=== PATIENT | male | born 1990 | race African-American/Black ===

== ENCOUNTER 2018-03-21 06:07 | Day surgery (SDC) | payer OTHER ==
[2018-03-20 12:29] VITALS: BMI 28.2
--- NOTE | 2018-03-20 14:47 | HP ---
HISTORY OF PRESENT ILLNESS: The patient is a 27-year-old male who injured his left knee playing bask etball approximately 4 years ago. He initially tried to pursue conservative treatment but was contin ued to have pain, difficulty in giving way despite rest, restriction of activities, exercise, and use of a knee brace. The symptoms are now interfering with day-to-day activities including working. He has had several repetitive episodes of instability. PAST MEDICAL HISTORY: The patient is otherwise in good health. PAST SURGICAL HISTORY: He has had stress fractures in his tibia in the past which healed with conser vative treatment. CURRENT MEDICATIONS: He ____ routine medications. ALLERGIES: He has no known allergies. FAMILY HISTORY/SOCIAL HISTORY/REVIEW OF SYSTEMS: Otherwise unremarkable. PHYSICAL EXAMINATION: GENERAL: Reveals a healthy male. HEENT: Unremarkable. NECK: Supple. CHEST: Clear. HEART: Regular rate and rhythm. ABDOMEN: Soft, nontender. RECTAL/GENITAL: Deferred. EXTREMITIES: Pertinent findings of the left knee are trace effusion. There is no warmth or erythema . There is normal alignment. There is tenderness over the medial and lateral joint lines. There is a positive Artur and positive anterior drawer ____ secondary to pain. Range of motion is from 2-1 40 degrees ____ maneuver. NEUROVASCULAR: Exam is intact. Pulses are 2+. His gait is normal. LABORATORY AND X-RAY FINDINGS: X-rays of the knee reveal mild degenerative changes medially and late rally. MRI scan of the left knee performed in November of last year reveals a chronic ACL tear and tear of the medial and lateral menisci and early degenerative changes. 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 PLAN: He has arthroscopic-assisted anterior cruciate ligament reconstruction with patellar tendon gr aft and/or medial and lateral meniscectomies and/or debridement and shaving. The nature of the surge ry, length of recovery, and potential complications such as infection, loss of motion, incomplete rel ief, neurovascular injury, post-traumatic degenerative arthritis, recurrent tear, need for additional treatment or repeat surgery have been discussed in detail.
[2018-03-21] MEDS ORDERED: Lidocaine 1% (PF) 30 ML VIAL ONE (06:36)
[2018-03-21] MEDS ORDERED: Fentanyl 100 MCG/2 ML VIAL ONE ×3 (06:36→10:13)
[2018-03-21] MEDS ORDERED: Midazolam HCl 2 mg/2 ml Vial ONE (06:36)
[2018-03-21] MEDS ORDERED: CEFAZOLIN 2 GM/50 ML BAG ONE (06:45)
[2018-03-21] MEDS ORDERED: Morphine 10 MG/ML VIAL ONE (09:05)
[2018-03-21] MEDS ORDERED: Meperidine HCl/PF 25 MG/ML VIAL ONE (10:13)
--- NOTE | 2018-03-21 11:02 | RAD ---
TWO VIEW LEFT KNEE: Clinical history: Post-operative evaluation. FINDINGS: There is evidence of ACL reconstruction. Overlying skin veronica and soft tissue air are present. No a cute hardware complication visualized. IMPRESSION: Post-operative left knee without acute hardware complication. POS: [facility]
--- NOTE | 2018-03-21 11:10 | OP ---
DATE OF PROCEDURE: 03/21/2018 SURGEON: Severo Anna M.D. ENVIRONMENTAL TECH: Tiffany Gongora PA-C. ANESTHESIA: General plus single-shot femoral nerve block. 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 POSTOPERATIVE DIAGNOSES: Chronic anterior cruciate ligament tear and medial and lateral meniscal tea rs, left knee. PROCEDURES: 1. Arthroscopic anterior cruciate ligament reconstruction, left knee, with patellar tendon graft. 2. Partial medial and lateral meniscectomies, left knee. OPERATIVE FINDINGS: Examination under anesthesia revealed a positive Artur's and positive pivot sh ift. No medial or lateral instability. At arthroscopy, the patellofemoral joint was normal. There was a displaced bucket handle tear of the medial meniscus and early degenerative changes of the weigh tbearing surface of the medial femoral condyle where he was walking on the displaced fragment. There was a chronic tear of the anterior cruciate ligament with only minimal amounts of ligament remaining . Most of it was degenerative in nature and no significant intact fibers were present. Most of the lateral meniscus was absent representing a chronic tear and there was a retained posterior horn attac hment at the root, which was an unstable fragment. The anterior horn was intact with minimal degener ation. There was grade II and grade III changes in the weightbearing surface of the lateral femoral condyle at the so-called pivot point, but no areas of exposed bone. NARRATIVE REPORT: After satisfactory anesthesia was induced in supine position, the patient was plac ed in a leg cueva and prepped and draped in the routine manner. Left leg was elevated and exsanguin ated with an Esmarch bandage and the tourniquet inflated to 300 mmHg. Longitudinal incision was made from the inferior pole of patella to tibial tubercle, carried down to subcutaneous tissues. Bleedin g points controlled with Bovie cautery. Using sharp and blunt dissection, the patellar tendon was id entified and then a central third bone, patellar tendon bone graft was harvested with an oscillating saw and sharp dissection. Bone plugs on each end were approximately 10 x 25 mm. Drill holes were pl aced through the graft for passage of the graft with heavy Ethibond sutures. After harvesting the gr aft, it was prepared on the back table while I arthroscoped the knee. The knee was scoped through th e same incision used to harvest patellar tendon graft. The [employer] arthroscope was introduced in ant erolateral portal, probed through anteromedial portal and inflow and outflow accomplished through the scope using the Win arthroscopy pump. Arthroscopy was carried out and the above findings were n oted. All findings were documented with the video printer and hard copies were made. The anterior h orn of the medial meniscus was detached with meniscal scissors. The scope was then introduced in the anteromedial portal and the fragment grasped through the anterior lateral portal. The posterior hor n attachment of the medial meniscus was then detached with meniscal scissors introduced through the c entral portal and the fragment was extracted through the anterolateral portal. The scope was then re introduced into the anterolateral portal and the remaining meniscus debrided of some fronds of the re maining tissue back to a balanced stable rim. There was still a small amount of the meniscus remaini ng with intact rim of approximately 3 mm. The anterior cruciate ligament that remained was debrided with a motorized shaver. Lateral meniscus was debrided with the use of basket forceps and motorized shaver, intermittently exchanging the camera and instruments through the anterolateral and anteromedi al portals for best visualization. Most of the posterior horn was removed. The anterior horn anteri or half was intact. Small amount of the lateral femoral condyle was debrided with motorized shaver. Notchplasty of the lateral femoral condyle was then accomplished with a motorized bur to the over-th e-top position. A guidepin for the femoral tunnel was then drilled by introducing the [id number] g uide through the anteromedial portal and drilling the guide pin out through the anterolateral aspect of the thigh. A passing suture was placed to the proximal part of the guidepin and then the guidepin pulled through the knee and the suture left within the femoral tunnel for later passage of the graft . Before withdrawing the guidepin from the femoral tunnel, it was over reamed with a 10 mm cannulate d reamer and then the pin removed pulling the passing suture into the femoral tunnel. Using the appr mallyiate guide, a guidepin for the tibial tunnel was then placed and then overdrilled with a 10 mm can nulated reamer. There appeared to be good placement of both tunnels. The patellar tendon graft was then passed through the knee joint by extracting the suture in the femoral tunnel and pulling this ou t into the knee joint and out through the tibial tunnel and using this as a passing suture to pass th e graft. It was then pulled into the knee joint and through the tibial tunnel into the knee and then the femoral tunnel. Bone plugs were engaged in each tunnel. The femoral bone plug was fixed with a n interference screw placed over a guidepin. The knee was then placed into full extension and while holding the graft taut, the tibial bone plug was similarly fixed with interference screw placed over a guidepin. Following this, there was elimination of the Artur's and pivot shift and full range of motion. The knee was scoped and there appeared to be good position of the graft and full range of m otion without impingement. The knee was copiously irrigated through the scope and all instruments wi thdrawn. A small piece of Gelfoam was placed in the tibial harvest site and in the patellar harvest site, bone graft was placed from sizing the graft. The patellar tendon defect was closed with interr upted #2 Vicryl, subcutaneous tissue closed with interrupted #2-0 Vicryl and skin closed with a stapl e gun. Sterile bulky compressive dressing was applied and the tourniquet deflated after 2 hours and 2 minutes. The foot promptly pinked up. The patient was mobilized in a hinged postoperative Breg kn ee brace. He was awakened and taken to recovery room in stable condition. There were no apparent in traoperative complications. The estimated blood loss was negligible. The patient will be discharged home in satisfactory condition with ice, elevation, use of crutches an d home exercise by the Physical Therapy Department. He was given a prescription for Phyzios 10 for elfego n, 60 tablets. He will be checked in my office in 10-14 days or sooner if there are any problems zari or to that time.
[2018-03-21] MEDS ORDERED: Dexamethasone 4 mg/ml Vial ONE (12:04)
[2018-03-21] MEDS ORDERED: Bupivacaine HCl 0.5%/Epinephrine 1:200,000/PF 30 ml Vial ONE (15:56)
[2018-03-21] MEDS ORDERED: Ketorolac Tromethamine 30 MG/ML VIAL ONE (16:33)
[2018-03-21] MEDS ORDERED: Lidocaine 1% PF 5 ML VIAL ONE (16:33)
[2018-03-21] MEDS ORDERED: Ondansetron PF 4 MG/2 ML Vial ONE (16:33)
[2018-03-21] MEDS ORDERED: PROPOFOL 200 MG/20 ML VIAL ONE (16:33)
== END 2018-03-21 13:45 | disposition home or self-care (01) ==
LOC: SDC 06:07
PROVIDERS: ATTEND Orthopaedic Surgery
PROC: 0SBD4ZZ Excision of Left Knee Joint, Percutaneous Endoscopic Approach (ICD-10-PCS; principal; 2018-03-21)
PROC: 0MRP47Z Replacement of Left Knee Bursa and Ligament with Autologous Tissue Substitute, Percutaneous Endoscopic Approach (ICD-10-PCS; principal; 2018-03-21)
DX: S83.512A Sprain of anterior cruciate ligament of left knee, initial encounter (principal); S83.282A Other tear of lateral meniscus, current injury, left knee, initial encounter; S83.242A Other tear of medial meniscus, current injury, left knee, initial encounter; M17.32 Unilateral post-traumatic osteoarthritis, left knee; Y93.67 Activity, basketball
CPT/HCPCS: C1713; G8978-GP-CJ; G8979-GP-CJ; G8980-GP-CJ; J0670; J1100; J1885; J2001; J2175; J2250; J2270; J2405; J2704; J3010